=== PATIENT | female | born 1950 | race African-American/Black ===

== ENCOUNTER 2016-09-27 21:21 | Inpatient (IN) | payer OTHER ==
--- NOTE | ~2016-09-27 | EKG ---
PATIENT: CHERISE ALEMAN UNIT #: [id number] Ventricular Rate: 86 BPM Atrial Rate: 86 BPM P-R Interval: 232 ms QRS Duration: 100 ms Q-T Interval: 376 ms QTC Calculation(Bezet): 449 ms P Newcomb: 79 degrees Calculated R Newcomb: 71 degrees Calculated T Newcomb: -42 degrees Diagnosis Line: Sinus rhythm with 1st degree A-V block Diagnosis Line: ST and T wave abnormality, consider inferior Diagnosis Line: ischemia Diagnosis Line: ST and T wave abnormality, consider anterolateral Diagnosis Line: ischemia Diagnosis Line: Abnormal ECG Diagnosis Line: No previous ECGs available Diagnosis Line: Confirmed by MANDO CHAVES MD ([id number]) on Diagnosis Line: 09/28/2016 10:44:37 PM INTERPRETING MD: TELMA
--- NOTE | ~2016-09-27 | CR72 ---
[facility] A Service of [facility] RADIOLOGY TEXT RESULTS PATIENT: CHERISE ALEMAN LOCATION: [facility] 319-01 : 52 UNIT #: [id number] AGE: [address]: Cb Wallace MD SEX: F ORDER DR: [id number] [facility] [address]. [place], [place] [address] [id number] I MR#: [id number] Acc #: [id number] NAME: CHERISE ALEMAN : 1950 SEX: F STUDY DATE/TIME: 09/27/2016 23:25 UNIT: CEDOF ROOM: 36500 STUDY DESCRIPTION: CR Chest Single View Portable Attending Physician: Cb Wallace M.D. Ordering Physician: Florencio El M.D. Primary Care Physician: Primary Care Physician No MEDICAL IMAGING REPORT This report is preliminary unless electronic signature is present EXAM Portable chest INDICATION Syncope and shortness of air today. PROCEDURE Frontal view chest. COMPARISON 05/14/2015 FINDINGS Heart size is unchanged. No new dense consolidation, pleural fluid or pneumothorax. IMPRESSION No active process. Dictated by... William Han M.D. THIS IS AN ELECTRONICALLY VERIFIED REPORT William Han M.D. at 09/28/2016 10:24 PM EED/gage TD: 09/28/2016 02:15 JOB #: [id number] MEDICAL IMAGING REPORT [facility] A Service of [facility] RADIOLOGY TEXT RESULTS PATIENT: CHERISE ALEMAN LOCATION: [facility] 319-01 : 52 UNIT #: [id number] AGE: [address]: Cb Wallace MD SEX: F ORDER DR: Page 1 of 1 COPY
--- NOTE | ~2016-09-27 | HP ---
Unit #: [id number] #: [id number] Patient: CHERISE ALEMAN [id number] [address] [place], [place] [address] [id number] I MR#: [id number] NAME: CHERISE ALEMAN ROOM: 319 Age: 66 Sex: F Admission Date: 09/27/2016 : 1950 Attending Physician: Cb Wallace M.D. Primary Care Physician: No Primary Care Physician HISTORY AND PHYSICAL CHIEF COMPLAINT Syncopal episode. 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 She tells me that she found that she has a pulmonary embolism on admission. Otherwise, workup was negative. She was eventually discharged home. She says she was sitting at home on the couch and then her grandson called EMS and told her she was passed out. She was brought to the emergency room for further workup and evaluation. She does not remember anything about what happened. In the ER workup she was found to have hemoglobin of 6, hematocrit 19 and positive Hemoccult and tarry, black stool on Hemoccult, but she denies any bright red blood per rectum. She denies nausea, vomiting, epigastric pain, abdominal pain, fever, chills, cough, chest pain or any other complaint. PAST MEDICAL HISTORY 1. History of COPD. She uses oxygen at home. 2. Hypertension. 3. History of CVA 2 years ago with mild right-sided weakness. 4. History of pulmonary embolism. PAST SURGICAL HISTORY History of cholecystectomy. SOCIAL HISTORY She says she used to smoke 1 pack daily for a long time. She quit 4 weeks ago. Denies alcohol. Denies illicit drug use. FAMILY HISTORY Noncontributory. No history of coronary artery disease or stroke in the family. MEDICATIONS FROM HOME 1. Neurontin 300 mg p.o. daily. 2. Hydrochlorothiazide 25 mg daily. 3. Xarelto 20 mg daily. 4. Coreg 6.25 b.i.d. 5. Prinivil 40 mg daily. 6. Hydralazine 25 mg b.i.d. 7. Norvasc 10 mg daily. Unit #: [id number] #: [id number] Patient: CHERISE ALEMAN REVIEW OF SYSTEMS All review of systems negative except as in history of present illness. ALLERGIES Penicillin. PHYSICAL EXAMINATION GENERAL: Middle-aged female lying in bed comfortably. Currently not in any distress. She is alert, awake, oriented x3. CURRENT VITALS: Temp is 98.1, heart rate 84, respirations 16, blood pressure 119/87, oxygen 92% on room air. HEENT: Pupils are equal and reactive to light and accommodation. Head is normocephalic and atraumatic. NECK: Neck is supple. No JVD. No thyromegaly. LUNGS: Clear. Poor air entry but no rhonchi. No wheezing. HEART: S1, S2. Regular rate and rhythm. ABDOMEN: Abdomen is soft, nontender, nondistended. Bowel sounds are positive. EXTREMITIES: Inspection normal. No cyanosis. No clubbing. No edema. NEUROLOGIC: Mild right-sided weakness but no acute focal neurologic deficits. Cranial nerves II-XII intact. PSYCHIATRIC: Normal mood and affect. SKIN: Warm and dry. DIAGNOSTIC STUDIES LABORATORY WORKUP: Sodium 135, potassium 3, chloride 100, CO2 27, glucose 116, BUN 21, creatinine 0.7. LFTs within normal limits. CBC - WBC 9, hemoglobin 6.3, hematocrit 19.9, platelets 316. Troponin less than 0.05. ASSESSMENT AND PLAN 1. Symptomatic anemia with positive Hemoccult, tarry black stool, most likely upper GI bleed. Will start the patient on IV Protonix, clear liquid diet. Will type and cross and transfuse 2 units. Ask GI, Dr. Garner, to evaluate for GI workup. 2. Hypokalemia. Replace. Check magnesium level in the morning. 3. Syncopal episode with similar episode 4 weeks ago at [facility]. Will get old records from [facility]. 4. History of COPD, oxygen dependent. 5. Hypertension. 6. History of CVA in the past with mild right-sided weakness. 7. History of pulmonary embolism. Will hold Xarelto. 8. DVT prophylaxis. Will place the patient on SCDs. Dictated by Cb Wallace M.D. EHSAN/twin CORTEZ: 09/27/2016 23:23 TD: 09/28/2016 09:03 JOB #: [id number] Unit #: [id number] #: [id number] Patient: ASHCHERISE JOSIAH HISTORY AND PHYSICAL Page 1 of 1 X X HISTORY AND PHYSICAL
--- NOTE | ~2016-09-27 | CO ---
Unit #: [id number] #: [id number] Patient: CHERISE ALEMAN [id number] [address] [place], [place] [address] [id number] I MR#: [id number] NAME: CHERISE ALEMAN ROOM: 319 Age: 66 Sex: F Admission Date: 09/27/2016 : 1950 Attending Physician: Rosa Potter M.D. Primary Care Physician: Primary Care Physician No Consultation Date: 09/28/2016 CONSULTATION REPORT CONSULTING PHYSICIAN Cb Wallace M.D. PRIMARY REASON FOR CONSULTATION Symptomatic anemia. HISTORY OF PRESENT ILLNESS The patient is a 66-year-old woman, who presented to the emergency room with a syncopal episode at home. During her workup she was found to have a hemoglobin of 6.3, she was subsequently admitted. She has never had any previous such symptoms. She denies any nausea, vomiting, or abdominal pain. She has not had any hematemesis, bright red blood per rectum, melena, abdominal pain, or food intolerance. She states that she has had a colonoscopy done at [facility] on April of 2015, which she says is benign and did not have any polyps. She does take Xarelto for blood clots. PAST MEDICAL HISTORY As above, she also has a history of COPD, hypertension, and blood clots. She is status post cholecystectomy. She has had a stroke in the past as well. REVIEW OF SYSTEMS A 10-point review is performed, is negative other than what was already listed in the history of present illness. MEDICATIONS Home medications see her MAR. She is on Xarelto. ALLERGIES She is allergic to penicillin. SOCIAL HISTORY She denies alcohol or drug abuse. She is a one-half pack per day cigarette smoker. FAMILY HISTORY Noncontributory. PHYSICAL EXAMINATION GENERAL: She is alert, in no apparent distress. VITAL SIGNS: Temperature 98.3, pulse 93, respirations 16, and blood pressure 127/71. HEENT: Pupils are equal and round. Extraocular motions are intact. NECK: Supple without adenopathy. Unit #: [id number] #: [id number] Patient: CHERISE ALEMAN HEART: Regular rate and rhythm. LUNGS: Clear to auscultation anteriorly. ABDOMEN: Soft, benign, nontender, and nondistended. No masses appreciable. EXTREMITIES: Negative for clubbing, cyanosis, or edema. NEUROLOGIC: Negative focal sensory or motor deficits. DIAGNOSTIC STUDIES LABORATORY RESULTS: Significant for potassium of 3.0, which is being replaced on admission, BUN of 21, creatinine 0.7. PT of 16.3 with an INR of 1.5. Hemoglobin is 6.3 on admission. White blood cell count 9.9 and platelets 316. Her stool was noted to be heme-positive in the emergency room. ASSESSMENT AND PLAN The patient with symptomatic anemia of uncertain etiology. We will try to track down op note of the colonoscopy done little more than a year ago. If this was completely benign then she will likely only need an EGD, which we will plan to do tomorrow. Dictated by... Claire Rabago/pedro TD: 09/28/2016 09:33 JOB #: [id number] CONSULTATION REPORT Page 1 of 1 X Gautam Garcia CONSULTATION REPORT
--- NOTE | ~2016-09-27 | OR ---
Unit #: [id number] #: [id number] Patient: CHERISE ALEMAN [id number] [address] [place], [place] [address] [id number] I MR#: [id number] NAME: CHERISE ALEMAN ROOM: 319 Date of Procedure: 09/29/2016 Admission Date: 09/27/2016 Surgeon: Moody Zavaleta M.D. : 1950 Attending Physician: Rosa Potter M.D. Primary Care Physician: No Primary Care Physician PROCEDURE OPERATIVE NOTE PREOPERATIVE DIAGNOSES 1. Anemia. 2. Melena. POSTOPERATIVE DIAGNOSES 1. Anemia. 2. Melena. PROCEDURES PERFORMED 1. Esophagogastroduodenoscopy. 2. Colonoscopy to cecum. SURGEON Moody Zavaleta M.D. ANESTHESIA Monitored anesthesia care. FINDINGS The patient found on upper endoscopy to have no blood present within the stomach. No ulceration or abnormality was seen other than very mild distal esophagitis. On colonoscopy, the patient had a normal colonoscopy to the cecum. The ascending colon had some residual dark stool present which required washing quite a bit, but we were able to visualize the cecum well and no abnormality was seen. SPECIMENS None. COMPLICATIONS None apparent. CONDITION Patient tolerated the procedure well. INDICATIONS The patient is a 66-year-old black female who presented with significant anemia. She presents at this time for evaluation by upper as well as lower endoscopy operation. PROCEDURE After obtaining informed consent, the patient was brought to the endoscopy suite and after adequate monitored anesthesia care, had the endoscope Unit #: [id number] #: [id number] Patient: CHERISE ALEMAN placed through the mouth in the upper esophagus under direct vision. It was slowly advanced to the second and third portion of the duodenum without difficulty and with the lumen always in view. The duodenum was normal as well as the duodenal bulb. The pylorus opened normally. There was no abnormality seen in the duodenum or in the antrum. No blood was present in the stomach or duodenum. No ulcerations were seen. On retroflexing back to the GE junction, there was no abnormality seen in the proximal third, middle third, or incisura. On pulling it back above the GE junction, the patient had some mild distal esophagitis. There were no other abnormalities seen. No stenosis, stricture, or neoplasm was seen. The remaining portion of the esophagus was within normal limits. Laryngeal structures were grossly normal as viewed from above. At this point in time, the colonoscope was placed through the anus and slowly advanced to the level of the cecum without difficulty and with lumen always in view. The colon was very clean until the ascending colon was encountered. There was some dark stool coating the ascending colon and the cecum; however, this was washed out and we were able to visualize things well. The cecum was normal as was the area of the ileocecal valve. Despite multiple attempts, we were unable to pass into the ileocecal valve. On pulling back from the cecum, the cecum was visualized and appeared normal as viewed from above. The ascending colon was normal as was the hepatic flexure, transverse colon, splenic flexure, descending colon, sigmoid colon, and rectum. No diverticula were seen. On retroflexing in the rectum to the anorectal junction, the patient was found to have no significant abnormalities. The scope was removed without difficulty. The patient tolerated the procedure well and went from the endoscopy suite to the recovery area in stable condition. RECOMMENDATIONS Resume preop orders and meds, small bowel follow through in the a.m. Dictated by... Claire Riojas/efrain TD: 09/29/2016 10:58 JOB #: [id number] CC: [facility] PROCEDURE OPERATIVE NOTE Page 1 of 1 X Moody Zavaleta MD X PROCEDURE OPERATIVE NOTE
--- NOTE | ~2016-09-27 | EKG ---
PATIENT: CHERISE ALEMAN UNIT #: [id number] Ventricular Rate: 95 BPM Atrial Rate: 95 BPM P-R Interval: 226 ms QRS Duration: 98 ms Q-T Interval: 374 ms QTC Calculation(Bezet): 469 ms P Davison: 58 degrees Calculated R Davison: 66 degrees Calculated T Davison: -36 degrees Diagnosis Line: Sinus rhythm with 1st degree A-V block Diagnosis Line: RSR' or QR pattern in V1 suggests right Diagnosis Line: ventricular conduction delay Diagnosis Line: ST and T wave abnormality, consider inferior Diagnosis Line: ischemia Diagnosis Line: ST and T wave abnormality, consider anterolateral Diagnosis Line: ischemia Diagnosis Line: Abnormal ECG Diagnosis Line: When compared with ECG of 27-SEP-2016 21:48, Diagnosis Line: (unconfirmed) Diagnosis Line: No significant change was found Diagnosis Line: Confirmed by MANDO CHAVES MD ([id number]) on Diagnosis Line: 09/28/2016 10:44:57 PM INTERPRETING MD: TELMA
--- NOTE | ~2016-09-27 | CR236 ---
[facility] A Service of [facility] RADIOLOGY TEXT RESULTS PATIENT: CHERISE ALEMAN LOCATION: C2A 241- : 52 UNIT #: [id number] AGE: [address]: Rosa Potter MD SEX: F ORDER DR: [id number] [facility] [address]. [place], [place] [address] [id number] I MR#: [id number] Acc #: [id number] NAME: CHERISE ALEMAN : 1950 SEX: F STUDY DATE/TIME: 09/30/2016 12:50 UNIT: A ROOM: [facility] STUDY DESCRIPTION: CR Small Bowel Sbft W Films Attending Physician: Rosa Potter M.D. Ordering Physician: Ld Hernandez M.D. Primary Care Physician: Primary Care Physician No MEDICAL IMAGING REPORT This report is preliminary unless electronic signature is present EXAM Small bowel follow-through, 09/30. INDICATIONS Anemia for 4 days. Syncope. GI bleed. FINDINGS Glycerin Operator image demonstrates a normal bowel gas pattern. There is degenerative disease in the lower lumbar spine. Small bowel follow-through was obtained. 19 total images were obtained. Fluoro time is about 30 seconds. Transit time through the small bowel was prompt with contrast well into the colon within 65 minutes. No dilated bowel loops are identified. There is no evidence of bowel wall thickening. Terminal ileum is unremarkable. A normal appendix fills with contrast. IMPRESSION Normal small bowel follow-through. Dictated by... Vipin Pulido Jr., M.D. THIS IS AN ELECTRONICALLY VERIFIED REPORT Vipin Pulido Jr., M.D. at 10/02/2016 7:19 AM NACHO/iron TD: 09/30/2016 20:19 JOB #: [id number] MEDICAL IMAGING REPORT Page 1 of 1 COPY
--- NOTE | ~2016-09-27 | DS ---
Unit #: [id number] #: [id number] Patient: CHERISE ENRIQUEZ [id number] [address] [place], [place] [address] [id number] I MR#: [id number] NAME: CHERISE ENRIQUEZ ROOM: 241 Age: 66 Sex: F Admission Date: 09/27/2016 : 1950 Discharge Date: 09/30/2016 Attending Physician: Rosa Potter M.D. Primary Care Physician: No Primary Care Physician DISCHARGE SUMMARY PRINCIPAL DIAGNOSES 1. Acute GI bleed with unknown source, now resolved. 2. Acute blood loss anemia, status post transfusion of two units of packed red blood cells. 3. Iron deficiency anemia, status post Venofer. 4. Vitamin B12 deficiency, mild, with vitamin B12 level of 241. 5. Recent history of PE, currently maintained on Xarelto therapy. I will note the patient was on Lovenox for a portion of her hospitalization and did not have recurrent bleeding. 6. Hypertension. 7. Chronic obstructive pulmonary disease. Oxygen requiring. 8. Prior history of stroke with chronic right-sided weakness. 9. Recent tobacco cessation. 10. Hypokalemia, resolved. CONSULTANTS Dr. Zavaleta, general surgery. PROCEDURES PERFORMED 1. EGD on 09/29/2016 with no abnormality noted, with the exception of some mild distal esophagitis. 2. Colonoscopy on 09/29/2016, which was normal. DIAGNOSTIC DATA IMAGING: Chest x-ray on 09/27/2016 which was unremarkable. CLINICAL HISTORY/HOSPITAL COURSE Ms. Enriquez is a nice 66-year-old female who presented to the emergency department with bright red blood per rectum, with associated syncopal episode. In the emergency department the patient was found to have a hemoglobin of 6 and she is Hemoccult positive. She was subsequently admitted for further evaluation. General surgery was consulted and the patient underwent EGD and colonoscopy with findings as noted. No significant obvious source of bleeding was located. Due to this, the patient underwent small bowel followthrough today, which was normal. She has been able to tolerate a diet without complication. Her Xarelto was held upon admission and she received two units of packed red blood cells. Lovenox was initiated after negative EGD and colonoscopy and hemoglobin has remained stable on anticoagulation. We will reinitiate Xarelto and have her follow up with surgery as an outpatient. I will also place her on PPI therapy due to her esophagitis. Unit #: [id number] #: [id number] Patient: CHERISE ENRIQUEZ DISCHARGE CONDITION Stable. DISPOSITION Discharge to home. DISCHARGE MEDICATIONS 1. Protonix 40 mg daily with 1 refill given. 2. Lisinopril 40 mg daily. 3. Vitamin B12 1000 mcg p.o. daily. 4. Symbicort 160/4.5 mcg 1 puff daily. 5. Xarelto 20 mg daily. 6. Neurontin 300 mg daily. 7. Coreg 6.25 mg b.i.d. 8. Norvasc 10 mg daily. 9. Hydrochlorothiazide 25 mg daily. 10. Lipitor 20 mg at bedtime. 11. Hydralazine 25 mg b.i.d. DISCHARGE DIET The patient is instructed to follow a heart healthy diet. ACTIVITY She can increase her activity as tolerated. FOLLOWUP 1. The patient will follow up with her primary care physician in four weeks. 2. She can follow up with [facility] in four weeks as well. Dictated by... Rosa Potter M.D. JUAN DAVID/joy TD: 10/02/2016 09:59 JOB #: [id number] DISCHARGE SUMMARY Page 1 of 1 X Rosa Potter MD DISCHARGE SUMMARY
[2016-09-27 22:12] LABS: POC - CKMB <1.0 ng/mL (0.0-7.9); POC - TROPONIN <0.05 ng/mL (<=0.05)
[2016-09-27 22:20] LABS: BASOPHIL% 0.5 % (0-2.5); EOSINOPHIL# 0.2 X10e3 (0-0.7); EOSINOPHIL% 1.8 % (0.0-7.0); HEMATOCRIT 19.9 % (35.0-45.0); LYMPHOCYTE# 1.4 X10e3 (1.0-3.5); LYMPHOCYTE% 14.4 % (17.0-45.0); MEAN CELL VOLUME 90.5 FL (83-96); MEAN CORPUSCULAR HEMOGLOBIN 28.9 PG (28-34); MEAN CORPUSCULAR HGB CONC 31.9 g/dL (30-36); MEAN PLATELET VOLUME 6.9 FL (6.5-11.5); MONOCYTE% 10.4 % (3.0-12.0); NEUTROPHIL# 7.2 X10e3 (1.5-7.1); NEUTROPHIL% 72.9 % (40-75); PLATELET COUNT 316 X10e3 (140-420); RED BLOOD COUNT 2.19 X10e (3.90-5.30); WHITE BLOOD COUNT 9.9 X10e3 (4.0-10.5)
[2016-09-27 22:22] LABS: DIFF IND YES; HEMOGLOBIN 6.3 gm/dL (12.0-16.0)
[2016-09-27 22:43] LABS: ALBUMIN SERUM 3.5 g/dL (3.5-5.0); BILIRUBIN, DIRECT 0.1 mg/dL (0.0-0.2); BILIRUBIN,INDIRECT 0.3 mg/dL (0.0-0.9); BILIRUBIN,TOTAL 0.4 mg/dL (0.2-2.0); CALCIUM SERUM 8.7 mg/dL (8.4-10.2); CREATININE SERUM 0.7 mg/dL (0.6-1.4); GLOM FILT RATE Estimated 106.1 mL/min (>60); PROTEIN TOTAL SERUM 6.3 g/dL (6.0-8.3)
[2016-09-27 22:45] LABS: HYPOCHROMIA SL; PLATELET ESTIMATE NORMAL (NORMAL); POLYCHROMASIA SL
[2016-09-27] MEDS ORDERED: NEURONTIN300 MG PO (22:56)
[2016-09-27] MEDS ORDERED: HYDRALAZINE HCL25 MG PO (22:57)
[2016-09-27] MEDS ORDERED: HYDROCHLOROTHIA25 MG PO (22:57)
[2016-09-27] MEDS ORDERED: XARELTO20 MG PO (22:57)
[2016-09-27] MEDS ORDERED: NORVASC10 MG PO (22:57)
[2016-09-27] MEDS ORDERED: PRINIVIL40 MG PO (22:57)
[2016-09-27] MEDS ORDERED: COREG6.25 M1 PO (22:57)
[2016-09-27 23:01] LABS: INR 1.5; PARTIAL THROMBOPLASTIN TIME 29.2 SECONDS (23.5-31.3); PROTHROMBIN TIME (PATIENT) 16.3 SECONDS (10.0-11.7)
[2016-09-27] MEDS ORDERED: LIPITOR20 MG PO (23:51)
[2016-09-27] MEDS ORDERED: SYMBICORT INH (23:52)
[2016-09-28 00:13] LABS: IRON SERUM 18 ug/dL (28-170); TOTAL IRON BINDING CAPACITY 419 ug/dL (269-535); TRANSFERRIN 299 mg/dL (192-382); TRANSFERRIN SATURATION 4 % (20-50)
[2016-09-28 01:04] LABS: POC - CKMB <1.0 ng/mL (0.0-7.9); POC - TROPONIN <0.05 ng/mL (<=0.05)
[2016-09-28 05:37] LABS: URINE SOURCE CLEAN CATCH
[2016-09-28 05:49] LABS: URINE APPEARANCE CLEAR; URINE BILIRUBIN NEG (NEG); URINE BLOOD NEG (NEG); URINE COLOR YELLOW; URINE GLUCOSE NEG (NEG); URINE KETONE NEG (NEG); URINE LEUKOCYTE ESTERASE 1+ (NEG); URINE NITRATE NEG (NEG); URINE PROTEIN NEG (NEG); URINE SPECIFIC GRAVITY 1.012 (1.003-1.035)
[2016-09-28 05:52] LABS: URBCS1 AUWI 0-2 /[HPF] (0-2); URINE BACTERIA AUWI NEG (NEGATIVE); URINE SQUAMOUS EPITHELIAL CELL OCC /[HPF]
[2016-09-28 05:56] LABS: CULTURE INDICATED? NO
[2016-09-28 12:29] LABS: HEMATOCRIT 27.4 % (35.0-45.0); MEAN CORPUSCULAR HEMOGLOBIN 29.4 PG (28-34); MEAN CORPUSCULAR HGB CONC 32.7 g/dL (30-36); MEAN PLATELET VOLUME 6.9 FL (6.5-11.5); RED BLOOD COUNT 3.05 X10e (3.90-5.30); RED CELL DISTRIBUTION WIDTH 15.5 % (11.0-15.5)
[2016-09-28 12:59] LABS: CALCIUM SERUM 8.8 mg/dL (8.4-10.2); CREATININE SERUM 0.5 mg/dL (0.6-1.4); GLOM FILT RATE Estimated 118.6 mL/min (>60); MAGNESIUM 2.3 mg/dL (1.6-3.0); POTASSIUM 3.5 mmol/L (3.5-5.1)
[2016-09-28 13:15] LABS: FOLATE (FOLIC ACID) 7.1 ng/mL (>5.8)
[2016-09-29 06:38] LABS: HEMATOCRIT 25.3 % (35.0-45.0); HEMOGLOBIN 8.2 gm/dL (12.0-16.0); MEAN CELL VOLUME 88.8 FL (83-96); MEAN CORPUSCULAR HGB CONC 32.6 g/dL (30-36); MEAN PLATELET VOLUME 6.8 FL (6.5-11.5); RED BLOOD COUNT 2.85 X10e (3.90-5.30); RED CELL DISTRIBUTION WIDTH 15.6 % (11.0-15.5); WHITE BLOOD COUNT 6.8 X10e3 (4.0-10.5)
[2016-09-29 07:47] LABS: BUN/CREATININE RATIO 21.66; CALCIUM SERUM 8.3 mg/dL (8.4-10.2); CREATININE SERUM 0.6 mg/dL (0.6-1.4); GLOM FILT RATE Estimated 111.6 mL/min (>60); MAGNESIUM 2.3 mg/dL (1.6-3.0); POTASSIUM 3.7 mmol/L (3.5-5.1)
[2016-09-30 06:24] LABS: HEMATOCRIT 24.5 % (35.0-45.0); MEAN CELL VOLUME 88.3 FL (83-96); MEAN CORPUSCULAR HEMOGLOBIN 28.7 PG (28-34); MEAN CORPUSCULAR HGB CONC 32.5 g/dL (30-36); MEAN PLATELET VOLUME 6.9 FL (6.5-11.5); RED BLOOD COUNT 2.77 X10e (3.90-5.30); RED CELL DISTRIBUTION WIDTH 16.1 % (11.0-15.5); WHITE BLOOD COUNT 6.7 X10e3 (4.0-10.5)
[2016-09-30 07:53] LABS: MAGNESIUM 1.9 mg/dL (1.6-3.0); POTASSIUM 3.4 mmol/L (3.5-5.1)
[2016-09-30] MEDS ORDERED: PROTONIX PO (15:37)
[2016-09-30] MEDS ORDERED: B-121000 MC1 PO (15:37)
[2016-09-30] MEDS ORDERED: HEMOCYTE324 MG PO (16:06)
== END 2016-09-30 17:25 | disposition home or self-care (01) | DRG 378 ==
LOC: CED 21:21 → C2A 23:30 → C3A PCU 23:30 → CEDOF 23:30 → CED 23:33 → CEDOF 09-28 06:42 → C3A PCU 09-28 06:42 → C2A 09-30 02:55
PROVIDERS: Emergency Medicine; Internal Medicine; Surgery
PROC: 30233N1 Transfusion of Nonautologous Red Blood Cells into Peripheral Vein, Percutaneous Approach (ICD-10-PCS; 2016-09-28)
PROC: 0DJ08ZZ Inspection of Upper Intestinal Tract, Via Natural or Artificial Opening Endoscopic (ICD-10-PCS; principal; 2016-09-29 09:43)
PROC: 0DJD8ZZ Inspection of Lower Intestinal Tract, Via Natural or Artificial Opening Endoscopic (ICD-10-PCS; 2016-09-29 09:43)
DX: K92.2 Gastrointestinal hemorrhage, unspecified (principal); I69.351 Hemiplegia and hemiparesis following cerebral infarction affecting right dominant side; I10 Essential (primary) hypertension; J44.9 Chronic obstructive pulmonary disease, unspecified; F17.210 Nicotine dependence, cigarettes, uncomplicated; D50.9 Iron deficiency anemia, unspecified; D62 Acute posthemorrhagic anemia; Z90.49 Acquired absence of other specified parts of digestive tract; Z88.0 Allergy status to penicillin; Z86.711 Personal history of pulmonary embolism; Z79.01 Long term (current) use of anticoagulants; E87.6 Hypokalemia; K20.9 Esophagitis, unspecified
CPT/HCPCS: 36415; 71010; 74250; 80048; 80076; 81003; 82553; 82607; 82746; 83540; 83550; 83735; 84132; 84484; 85025; 85027; 85610; 85730; 86850; 86900; 86901; 86923; 93005; 94640; 94760; 97161; 97167; 99285; C9113; G8978-GP; G8979-GP; G8980-GP; J1650; J2250; J2916; J3475; P9016